=== PATIENT | female | born 1955 | race Caucasian/White ===

== ENCOUNTER → 2016-10-15 | Outpatient (CLI) | payer OTHER | LOC: FIMAGING 12:04 | PROVIDERS: ATTEND Family Medicine | DX: Z12.31 Encounter for screening mammogram for malignant neoplasm of breast (principal); Z85.3 Personal history of malignant neoplasm of breast | CPT/HCPCS: G0202 ==

== ENCOUNTER 2017-06-15 22:15 | Emergency (ER) | payer OTHER ==
[2017-06-15 22:21] VITALS: BP 116/74; PULSE 76; RESP 18; TEMP 99.7; O2SAT 96
--- NOTE | 2017-06-15 22:30 | EDPHY ---
H & P Stated Complaint: DYSURIA X COUPLE OF WEEKS WORSE TODAY Time Seen by Provider: 06/15/17 22:24 HPI/ROS: Chief Complaint: Low back pain, possible UTI HPI: 61-year-old woman with a history of recurrent urinary tract infections in the past is complete complaining of low back pain and some lower abdominal discomfort consistent with her prior UTIs. Symptoms have been waxing waning for the last couple weeks with been worse the last couple days. No fevers or chills. No nausea or vomiting. No urinary urgency or frequency. No hematuria. Pain is described as a warm sensation in her lower back. No new numbness or weakness. She is ambulating without any difficulty. ROS: 10 point Review of Systems is negative except as noted in the HPI. PMH: Hypothyroidism, anxiety Social History: No smoking, no alcohol, no recreational drug use Family History: non-contributory Physical Exam: Gen: Awake, Alert, No Distress HEENT: Nose: no rhinorrhea Eyes: PERRLA, EOMI Mouth: Moist mucosa Neck: Supple, no JVD Chest: nontender, lungs clear to auscultation Heart: S1, S2 normal, no murmur Abd: Soft, non-tender, no guarding Back: no CVA tenderness, no midline tenderness mild paraspinal soft tissue tenderness to palpation, Ext: no edema, non-tender Skin: no rash Neuro: CN II-XII intact, Sensation grossly intact, Strength 5/5 in bilateral upper and lower extremities - Personal History Current Tetanus/Diphtheria Vaccine: Yes Current Tetanus Diphtheria and Acellular Pertussis (TDAP): Yes - Medical/Surgical History Hx Asthma: No Hx Chronic Respiratory Disease: No Hx Diabetes: No Hx Cardiac Disease: No Hx Renal Disease: No Hx Cirrhosis: No Hx Alcoholism: No Hx HIV/AIDS: No Hx Splenectomy or Spleen Trauma: No Other PMH: SINUITIS. HYPOTHYROID, - Social History Smoking Status: Never smoked Constitutional: Initial Vital Signs Temperature (C) 37.6 C 06/15/17 22:16 Heart Rate 76 06/15/17 22:16 Respiratory Rate 18 06/15/17 22:16 Blood Pressure 116/74 06/15/17 22:16 O2 Sat (%) 96 06/15/17 22:16 O2 Delivery Mode Room Air Allergies/Adverse Reactions: No Known Allergies Allergy (Unverified 06/15/17 22:21) Home Medications: Medication Instructions Recorded Levothyroxine 06/15/17 Medical Decision Making ED Course/Re-evaluation: Urinalysis consistent with UTI. Will start her on nitrofurantoin which has worked well for her in the past. She will follow up with primary care physician in 4-5 days if symptoms are not improving. - Data Points Laboratory Results: 06/15/17 22:28 Urine Color PALE YELLOW Urine Appearance HAZY Urine pH 7.0 (5.0-7.5) Ur Specific [place] 1.004 (1.002-1.030) Urine Protein NEGATIVE (NEGATIVE) Urine Ketones NEGATIVE (NEGATIVE) Urine Blood 1+ H (NEGATIVE) Urine Nitrate NEGATIVE (NEGATIVE) Urine Bilirubin NEGATIVE (NEGATIVE) Urine Urobilinogen NEGATIVE EU EU (0.2-1.0) Ur Leukocyte Esterase 3+ H (NEGATIVE) Urine RBC Pending Urine WBC Pending Ur Epithelial Cells Pending Urine Glucose NEGATIVE (NEGATIVE) Departure - Departure Disposition: Home, Routine, Self-Care Clinical Impression: Urinary tract infection Condition: Good Instructions: Urinary Tract Infection in Women (ED) Additional Instructions: Please take your full course of antibiotics. Follow up with primary care physician in 4-5 days if symptoms are not improving. Return to the emergency department for increasing abdominal pain, fevers or chills, nausea vomiting, or any other concerns. Referrals: Jennifer Kunz MD [Primary Care Provider] - As per Instructions
[2017-06-15] MEDS ORDERED: NITROFURANTOIN 100MG PREPACK#2 BTL TAKEHOME ONE (22:48)
== END 2017-06-15 23:04 | disposition home or self-care (01) ==
DX: N39.0 Urinary tract infection, site not specified (principal); B96.89 Other specified bacterial agents as the cause of diseases classified elsewhere

== ENCOUNTER → 2017-10-16 | Outpatient (CLI) | payer OTHER | LOC: FIMAGING 11:15 | PROVIDERS: ATTEND Family Medicine | DX: Z12.31 Encounter for screening mammogram for malignant neoplasm of breast (principal); Z85.3 Personal history of malignant neoplasm of breast; Z92.3 Personal history of irradiation ==

== ENCOUNTER → 2017-11-05 | Outpatient (CLI) | payer OTHER | LOC: FIMAGING 09:33 | PROVIDERS: ATTEND Family Medicine | DX: Z03.89 Encounter for observation for other suspected diseases and conditions ruled out (principal) ==

== ENCOUNTER → 2018-01-02 | Outpatient (CLI) | payer OTHER | LOC: FIMAGING 14:26 | DX: Z13.820 Encounter for screening for osteoporosis (principal); M85.89 Other specified disorders of bone density and structure, multiple sites; Z79.890 Hormone replacement therapy ==

== ENCOUNTER → 2018-10-17 | Outpatient (CLI) | payer OTHER | LOC: FIMAGING 15:34 ==